=== PATIENT | female | born 1985 | race Caucasian/White ===

== ENCOUNTER → 2017-12-23 | Outpatient (CLI) | payer SELFPAY ==
[~2017-12-23] MED LIST: CRB200T PO; KLONIPIN PO
--- NOTE | 2017-12-23 17:20 | Diagnostic Imaging Report ---
PROCEDURE: US Thyroid. TECHNIQUE: Multiple real-time grayscale images were obtained of the thyroid in various projections. INDICATION: Enlarged thyroid COMPARISON: There are no prior studies available for comparison. FINDINGS: The thyroid gland is not enlarged. The right lobe measures 4.6 x 1.6 x 2 cm, while the left lobe is estimated at 4.8 x 1.5 x 1.8 cm (normal gland size 4-5 by 2 x 2 cm or less). Each lobe of the thyroid is homogeneous. There is no discrete solid or cystic mass within either lobe. IMPRESSION: The thyroid gland is not enlarged and there is no discrete solid or cystic mass within either lobe. Dictated by: Dictated on workstation # [id number]
== END ==
LOC: RAD 14:16
PROVIDERS: ATTEND Nurse Practitioner Family
DX: E04.9 Nontoxic goiter, unspecified (principal)
CPT/HCPCS: 76536

== ENCOUNTER 2018-09-01 22:51 | Emergency (ER) | payer OTHER ==
[~2018-09-01] VITALS: Ht 167.6 cm; Wt 90.7 kg
--- OUTSIDE RECORDS SUMMARY | 2018-09-01 22:56 | XMS REPORT ---
Author Author EARLINE AGUILAR Organization [facility] Address [address] [place] [address] Care Team Providers Care Loss Prevention Lead Name Role Phone EARLINE AGUILAR Unavailable PROBLEMS Type Condition ICD9-CM Code TPR59-[place] Code Onset Dates Condition Status SNOMED Code Problem Intractable episodic cluster headache G44.011 Active 947013974 ALLERGIES No Known Allergies ENCOUNTERS Encounter Location Date Diagnosis [place] [id number] [facility] [address] [id number] [place] [id number] Sep, Dental examination Z01.20 [facility] [id number] [place] [address] [id number] Sep, Intractable episodic headache, unspecified headache type R51 and Intractable episodic cluster headache G44.011 [facility] [id number] [place] [address] [id number] Aug, Encounter for Depo-Provera contraception Z30.42 [facility] [id number] [place] [address] [id number] May, Intractable episodic cluster headache G44.011 [facility] [id number] [place] [address] [id number] May, Encounter for Depo-Provera contraception Z30.42 [facility] [id number] [place] [address] [id number] Feb, Encounter for Depo-Provera contraception Z30.42 [place] [id number] [place] [address] [id number] Jan, Cough R05 and Flu-like symptoms R68.89 [facility] [id number] [place] [address] [id number] Jan, Acute non-recurrent frontal sinusitis J01.10 [facility] [address] [id number] Dec, Cough R05 and Sore throat J02.9 [facility] [address] [address] [id number] [place] [phone] Dec, [facility] [address] [facility] [address] [id number] [place] [phone] Dec, Dental examination Z01.20 [facility] [id number] [phone] Dec, [facility] [id number] [place] [address] [id number] Nov, Well woman exam with routine gynecological exam Z01.419 ; High risk sexual behavior Z72.51 ; control counseling Z30.09 ; Encounter for initial prescription of injectable contraceptive Z30.013 and Encounter for Depo-Provera contraception Z30.42 [facility] [address] [id number] Dec, Encounter for immunization Z23 [facility] [id number] [place] [address] [id number] Jun, Dental examination Z01.20 [facility] [address] [address] May, Dental examination Z01.20 [facility] [id number] [place] [phone] May, Dental examination Z01.20 [facility] [id number] [place] [phone] Apr, Dental examination Z01.20 [facility] [address] [place] [address] [id number] [phone] Jan, Viral syndrome B34.9 [facility] [id number] [place] [address] [id number] Dec, Dental examination Z01.20 and Dental caries K02.9 IMMUNIZATIONS Vaccine Route Administration Date Status PHENERGAN (IM) 25 MG (25 MG/ML) IM Intramuscular June 08, 2017 Administered TORADOL (IM) 60 MG/2ML (UP TO 15 MG) IM Intramuscular June 08, 2017 Administered SOCIAL HISTORY Never Assessed REASON FOR VISIT Headache for past 5 days---EDDIE musa PLAN OF CARE Activity Details Follow Up prn if not improving Reason: VITAL SIGNS Height 66 in 2017-06-08 Weight 191.2 lbs 2017-06-08 Temperature 99.3 degrees Fahrenheit 2017-06-08 Heart Rate 95 bpm 2017-06-08 Respiratory Rate 16 2017-06-08 BMI 30.86 kg/m2 2017-06-08 Blood pressure systolic 106 mmHg 2017-06-08 Blood pressure diastolic 64 mmHg 2017-06-08 MEDICATIONS Medication Instructions Dosage Frequency Start Date End Date Duration Status Olanzapine 5 MG Orally Once a day 1 tablet 24h Active Imitrex 100 mg Orally Twice a day 1 tablet as needed and may repeat in 1 hour if not resolved 12h May, 30 days Active Pseudoephedrine HCl 30 MG Orally every 6 hrs 1 tablet as needed 6h Jan, 07 days Not-Taking ProAir HFA 108 (90 Base) MCG/ACT Inhalation every 6 hrs 2 puffs as needed 6h Jan, 30 days Not-Taking [place] Carbonate 600 MG Orally Once a day 1 capsule at bedtime 24h Active RESULTS No Results PROCEDURES Procedure Date Ordered Result Body Site PHENERGAN (IM) 25 MG (25 MG/ML) June 08, 2017 THER/PROPH/DIAG INJ, SC/IM June 08, 2017 TORADOL (IM) 60 MG/2ML (UP TO 15 MG) June 08, 2017 INSTRUCTIONS MEDICATIONS ADMINISTERED No Known Medications MEDICAL (GENERAL) HISTORY Type Description Date Medical History cluster headaches Surgical History tonsilectomy 2002 Surgical History bone removed from left foot 2008
--- OUTSIDE RECORDS SUMMARY | 2018-09-01 22:56 | XMS REPORT ---
Author Author MARTITA DEAN [facility] Address [address] [place] [address] Care Team Providers Care Flight Communications Specialist Name Role Phone MARTITA DEAN Unavailable PROBLEMS Type Condition ICD9-CM Code FNE58-AL Code Onset Dates Condition Status SNOMED Code Problem Rhinitis J31.0 Active 23187105 Problem Enlarged thyroid E04.9 Active 9464175 Problem Intractable episodic cluster headache G44.011 Active 415656797 ALLERGIES No Known Allergies ENCOUNTERS Encounter Location Date Diagnosis [facility] [id number] [place] [address] [id number] Dec, Sore throat J02.9 ; Rhinitis J31.0 ; Nausea & vomiting R11.2 and Diarrhea R19.7 [facility] [id number] [place] [address] [id number] Dec, [facility] [id number] [place] [address] [id number] Dec, Enlarged thyroid E04.9 [facility] [id number] [place] [address] [id number] Nov, Encounter for Depo-Provera contraception Z30.[address] [id number] [phone] Sep, Dental examination Z01.20 [facility] [id number] [place] [address] [id number] Sep, Intractable episodic headache, unspecified headache type R51 and Intractable episodic cluster headache G44.011 [place] [id number] [place] [address] [id number] Aug, Encounter for Depo-Provera contraception Z30.42 [facility] [id number] [place] [address] [id number] May, Intractable episodic cluster headache G44.011 [address] [id number] May, Encounter for Depo-Provera contraception Z30.42 [place] [id number] [place] [address] [id number] Feb, Encounter for Depo-Provera contraception Z30.42 [place] [id number] [place] [address] [id number] Jan, Cough R05 and Flu-like symptoms R68.[address] [place] [address] [id number] Jan, Acute non-recurrent frontal sinusitis J01.[address] [place] [address] [id number] Dec, Cough R05 and Sore throat J02.9 [facility] [address] [id number] [phone] Dec, [facility] [id number] [place] [address] [id number] Dec, Dental examination Z01.20 [address] [place] [address] [id number] Dec, [place] [id number] [place] [address] [id number] Nov, Well woman exam with routine gynecological exam Z01.419 ; High risk sexual behavior Z72.51 ; control counseling Z30.09 ; Encounter for initial prescription of injectable contraceptive Z30.013 and Encounter for Depo-Provera contraception Z30.42 [address] [phone] Dec, Encounter for immunization Z23 [facility] [address] [address] [id number] [phone] Jun, Dental examination Z01.20 [facility] [id number] [place] [phone] May, Dental examination Z01.20 [facility] [address] [place] [phone] May, Dental examination Z01.20 [facility] [address] [id number] [place] [address] Apr, Dental examination Z01.20 [facility] [address] [id number] [place] [phone] Jan, Viral syndrome B34.9 [facility] [address] [id number] [place] [phone] Dec, Dental examination Z01.20 and Dental caries K02.9 IMMUNIZATIONS No Known Immunizations SOCIAL HISTORY Never Assessed REASON FOR VISIT states she has not felt good the past week, body aches and fever, started vomiti ng x 3 days ago. mariana Alberto PLAN OF CARE Activity Details Follow Up prn (with PCP) Reason: VITAL SIGNS Height 66 in 2017-12-31 Weight 187.4 lbs 2017-12-31 Temperature 98.0 degrees Fahrenheit 2017-12-31 Heart Rate 80 bpm 2017-12-31 Respiratory Rate 16 2017-12-31 BMI 30.24 kg/m2 2017-12-31 Blood pressure systolic 110 mmHg 2017-12-31 Blood pressure diastolic 76 mmHg 2017-12-31 MEDICATIONS Medication Instructions Dosage Frequency Start Date End Date Duration Status Zyrtec Allergy 10 mg Orally Once a day 1 tablet 24h Dec, Feb, 30 day(s) Active [place] Carbonate 600 MG Orally Once a day 1 capsule at bedtime 24h Active Imitrex 100 mg Orally as directed 1 tablet as needed and may repeat in 1 hour if not resolved May, 30 days Active Abilify 10 MG Orally Once a day 1 tablet 24h Active Ondansetron 8 MG Orally Twice a day 1 tablet on the tongue and allow to dissolve 12h Dec, 5 days Active RESULTS Name Result Date Reference Range STREP A (IN HOUSE) STREP A negative Control positive Lot # [id number] Exp date 06/11/20 PROCEDURES Procedure Date Ordered Result Body Site STREP A ASSAY W/OPTIC Dec 31, 2017 INSTRUCTIONS MEDICATIONS ADMINISTERED No Known Medications MEDICAL (GENERAL) HISTORY Type Description Date Medical History cluster headaches Medical History bipolar disorder Surgical History tonsilectomy 2002 Surgical History bone removed from left foot 2008
--- OUTSIDE RECORDS SUMMARY | 2018-09-01 22:56 | XMS REPORT ---
Author Author MARTITA DEAN [facility] Address [address] [place] [address] Care Team Providers Care Color Control Supervisor Name Role Phone MARTITA DEAN Unavailable PROBLEMS Type Condition ICD9-CM Code HHN90-GJ Code Onset Dates Condition Status SNOMED Code Problem Enlarged thyroid E04.9 Active 3087040 Problem Intractable episodic cluster headache G44.011 Active 682627324 ALLERGIES No Information ENCOUNTERS Encounter Location Date Diagnosis [facility] [id number] [place] [address] [id number] Dec, Enlarged thyroid E04.[address] [id number] Nov, Encounter for Depo-Provera contraception Z30.[address] [id number] [id number] Sep, Dental examination Z01.20 [facility] [address] [id number] Sep, Intractable episodic headache, unspecified headache type R51 and Intractable episodic cluster headache G44.011 [place] [id number] [place] [address] [id number] Aug, Encounter for Depo-Provera contraception Z30.42 [facility] [id number] [place] [address] [id number] May, Intractable episodic cluster headache G44.011 [place] [id number] [place] [address] [id number] May, Encounter for Depo-Provera contraception Z30.42 [facility] [id number] [place] [address] [id number] Feb, Encounter for Depo-Provera contraception Z30.42 [place] [id number] [place] [address] [id number] Jan, Cough R05 and Flu-like symptoms R68.89 [facility] [id number] [id number] Jan, Acute non-recurrent frontal sinusitis J01.10 [facility] [address] [id number] [id number] Dec, Cough R05 and Sore throat J02.9 [facility] [address] [facility] [facility] [address] [id number] [phone] Dec, [facility] [address] [facility] [id number] [place] [address] [id number] Dec, Dental examination Z01.20 [place] [id number] [place] [address] [id number] Dec, [place] [id number] [place] [address] [id number] Nov, Well woman exam with routine gynecological exam Z01.419 ; High risk sexual behavior Z72.51 ; control counseling Z30.09 ; Encounter for initial prescription of injectable contraceptive Z30.013 and Encounter for Depo-Provera contraception Z30.42 [address] [place] [address] [id number] Dec, Encounter for immunization Z23 [facility] [address] [place] [address] [id number] Jun, Dental examination Z01.20 [facility] [id number] [place] [phone] May, Dental examination Z01.20 [facility] [id number] [place] [phone] May, Dental examination Z01.20 [facility] [address] [phone] Apr, Dental examination Z01.20 [facility] [address] [place] [id number], [place] [id number] Jan, Viral syndrome B34.9 [facility] [address], [place] [id number] Dec, Dental examination Z01.20 and Dental caries K02.9 IMMUNIZATIONS Vaccine Route Administration Date Status DEPO PROVERA (150 MG/ML) IM Intramuscular Dec 07, 2017 Administered SOCIAL HISTORY Never Assessed REASON FOR VISIT Depo Provera injection Louis TORRES PLAN OF CARE VITAL SIGNS MEDICATIONS No Known Medications RESULTS Name Result Date Reference Range TEST, URINE (IN HOUSE) 2017-12-07 RESULTS negative Lot # [id number] Control + Exp date 07/13/2019 PROCEDURES Procedure Date Ordered Result Body Site URINE TEST Dec 07, 2017 DEPO PROVERA (150 MG/ML) Dec 07, 2017 THER/PROPH/DIAG INJ, SC/IM Dec 07, 2017 INSTRUCTIONS MEDICATIONS ADMINISTERED No Known Medications MEDICAL (GENERAL) HISTORY Type Description Date Medical History cluster headaches Surgical History tonsilectomy 2002 Surgical History bone removed from left foot 2008
--- OUTSIDE RECORDS SUMMARY | 2018-09-01 22:57 | XMS REPORT ---
Author Author SANDRA DOMINGUEZ [facility] Address [address] [place] [address] Care Team Providers Care Waiter Name Role Phone VICTORINAALEXANDERSANDRA Unavailable PROBLEMS Type Condition ICD9-CM Code TEE65-GC Code Onset Dates Condition Status SNOMED Code Problem Intractable episodic cluster headache G44.011 Active [id number] ALLERGIES No Information ENCOUNTERS Encounter Location Date Diagnosis [place] [id number] [place] [address] [id number] May, Intractable episodic cluster headache G44.011 [place] [id number] [place] [address] [id number] May, Encounter for Depo-Provera contraception Z30.42 [place] [id number] [place] [address] [id number] Feb, Encounter for Depo-Provera contraception Z30.42 [place] [id number] [place] [address] [id number] Jan, Cough R05 and Flu-like symptoms R68.89 [place] [id number] [place] [address] [id number] Jan, Acute non-recurrent frontal sinusitis J01.10 [place] [id number] [place] [address] [id number] Dec, Cough R05 and Sore throat J02.9 [facility] [address] [facility] [id number] [phone] Dec, [place] [id number] [place] [address] [phone] Dec, Dental examination Z01.20 [place] [id number] [place] [address] [id number] Dec, [address] [place] [id number] 26 Nov, 2017 Well woman exam with routine gynecological exam Z01.419 ; High risk sexual behavior Z72.51 ; control counseling Z30.09 ; Encounter for initial prescription of injectable contraceptive Z30.013 and Encounter for Depo-Provera contraception Z30.42 [facility] [id number] [id number] 20 Dec, 2015 Encounter for immunization Z23 [facility] [address] [phone] Jun, Dental examination Z01.20 [facility] [id number] [place] [phone] May, Dental examination Z01.20 [facility] [id number] [place] [phone] May, Dental examination Z01.20 [facility] [id number] [place] [phone] Apr, Dental examination Z01.20 [facility] [address] [place] [address] [id number], [place] [phone] Jan, Viral syndrome B34.9 [facility] [address] [place] [address] [phone] Dec, Dental examination Z01.20 and Dental caries K02.9 IMMUNIZATIONS No Known Immunizations SOCIAL HISTORY Never Assessed REASON FOR VISIT requests return call PLAN OF CARE VITAL SIGNS MEDICATIONS No Known Medications RESULTS No Results PROCEDURES No Known procedures INSTRUCTIONS MEDICATIONS ADMINISTERED No Known Medications MEDICAL (GENERAL) HISTORY Type Description Date Medical History cluster headaches Surgical History tonsilectomy 2002 Surgical History bone removed from left foot 2008
--- OUTSIDE RECORDS SUMMARY | 2018-09-01 22:57 | XMS REPORT ---
Author Author EMANUEL TOLLIVER [facility] eClinical[employer] Address Unknown Phone Unavailable Care Team Providers Care Campus Administrative Assistant Name Role Phone EMANUEL TOLLIVER CP Unavailable Allergies, Adverse Reactions, Alerts Substance Reaction Event Type N.K.D.A. Info Not Available Non Drug Allergy Problems Problem Type Condition Code Onset Dates Condition Status Assessment Viral syndrome B34.9 Active Medications No Known Medications Procedures Procedure Coding System Code Date STREP A ASSAY W/OPTIC CPT-4 50678 Feb 04, 2015 INFLUENZA ASSAY W/OPTIC CPT-4 54951 Feb 04, 2015 Office Visit, New Pt., Level 2 CPT-4 61131 Feb 04, 2015 Vital Signs Date/Time: Feb 04, 2015 Cardiac Monitoring Heart Rate 90 bpm Temperature 102.4 F Weight 181 lbs Blood Pressure Diastolic 60 mmHg Blood Pressure Systolic 120 mmHg Results Name Result Date Reference Range Unit Abnormality Flag INFLUENZA A & B (IN HOUSE) Summary Purpose eClinicalWorks Submission
--- OUTSIDE RECORDS SUMMARY | 2018-09-01 22:57 | XMS REPORT ---
Author Author UMBERTO WORTHY [facility] Address [address] [place] [address] Care Team Providers Care Medicare Sales Representative Name Role Phone REKHA WORTHYO Unavailable PROBLEMS Type Condition ICD9-CM Code [id number] Code Onset Dates Condition Status SNOMED Code Problem Intractable episodic cluster headache G44.011 Active [id number] ALLERGIES No Known Allergies ENCOUNTERS Encounter Location Date Diagnosis [facility] [address] [id number] Sep, Dental examination Z01.20 [facility] [id number] [place] [address] [id number] Sep, Intractable episodic headache, unspecified headache type R51 and Intractable episodic cluster headache G44.011 [facility] [id number] [place] [address] [id number] Aug, Encounter for Depo-Provera contraception Z30.42 [address] [id number] [place] [address] [id number] May, Intractable episodic cluster headache G44.011 [facility] [id number] [place] [address] [id number] May, Encounter for Depo-Provera contraception Z30.42 [facility] [id number] [place] [address] [id number] Feb, Encounter for Depo-Provera contraception Z30.42 [id number] [place] [address] [id number] Jan, Cough R05 and Flu-like symptoms R68.89 [facility] [id number] [place] [address] [id number] Jan, Acute non-recurrent frontal sinusitis J01.10 [facility] [address] [id number] Dec, Cough R05 and Sore throat J02.9 [facility] [address] [id number] [phone] Dec, [facility] [address] [id number] [place] [phone] Dec, Dental examination Z01.20 [facility] [address] [id number] [id number] Dec, [facility] [id number], [place] [id number] Nov, Well woman exam with routine gynecological exam Z01.419 ; High risk sexual behavior Z72.51 ; control counseling Z30.09 ; Encounter for initial prescription of injectable contraceptive Z30.013 and Encounter for Depo-Provera contraception Z30.42 [facility] [id number], [place] [phone] Dec, Encounter for immunization Z23 [facility] [address] [place] [address] [id number] Jun, Dental examination Z01.20 [facility] [id number] [place] [phone] May, Dental examination Z01.20 [facility] [id number] [place] [phone] May, Dental examination Z01.20 [facility] [id number] [place] [phone] Apr, Dental examination Z01.20 [facility] [address] [id number] [phone] Jan, Viral syndrome B34.9 [facility] [id number] [place] [address] [id number] Dec, Dental examination Z01.20 and Dental caries K02.9 IMMUNIZATIONS No Known Immunizations SOCIAL HISTORY Never Assessed REASON FOR VISIT wants te PLAN OF CARE Activity Details Follow Up prn Reason:Referred to [place]. VITAL SIGNS Height 66 in 2017-10-11 Blood pressure systolic 106 mmHg 2017-10-11 Blood pressure diastolic 67 mmHg 2017-10-11 MEDICATIONS Medication Instructions Dosage Frequency Start Date End Date Duration Status Cougar Carbonate 600 MG Orally Once a day 1 capsule at bedtime 24h Active Olanzapine 5 MG Orally Once a day 1 tablet 24h Not-Taking Risperidone 1 MG Orally twice a day 1 tablet 12h Active Amoxicillin 500 MG Orally every 8 hrs 1 capsule 8h Sep, Oct, 10 day(s) Active Imitrex 100 mg Orally as directed 1 tablet as needed and may repeat in 1 hour if not resolved May, 30 days Active Pseudoephedrine HCl 30 MG Orally every 6 hrs 1 tablet as needed 6h Jan, 07 days Not-Taking Abilify Active ProAir HFA 108 (90 Base) MCG/ACT Inhalation every 6 hrs 2 puffs as needed 6h Jan, 30 days Not-Taking RESULTS No Results PROCEDURES Procedure Date Ordered Result Body Site LTD ORAL EVALUATION - PROBLEM FOCUS October 11, 2017 INTRAORL-PERIAPICAL 1 FILM [id number] October 11, 2017 BITEWING - SINGLE FILM October 11, 2017 INSTRUCTIONS MEDICATIONS ADMINISTERED No Known Medications MEDICAL (GENERAL) HISTORY Type Description Date Medical History cluster headaches Surgical History tonsilectomy 2002 Surgical History bone removed from left foot 2008
--- OUTSIDE RECORDS SUMMARY | 2018-09-01 22:57 | XMS REPORT ---
Author Author EARLINE AGUILAR Organization [facility] Address [address] [place] [address] Care Team Providers Care Strategic Business Development Name Role Phone EARLINE AGUILAR Unavailable PROBLEMS Type Condition ICD9-CM Code ODM65-BQ Code Onset Dates Condition Status SNOMED Code Problem Intractable episodic cluster headache G44.011 Active [id number] ALLERGIES No Information ENCOUNTERS Encounter Location Date Diagnosis [place] [id number] [facility] [address] [id number] [id number] Sep, Dental examination Z01.20 [facility] [id number] [place] [address] [id number] Sep, Intractable episodic headache, unspecified headache type R51 and Intractable episodic cluster headache G44.011 [facility] [id number] [place] [address] [id number] Aug, Encounter for Depo-Provera contraception Z30.42 [facility] [id number] [place] [address] [id number] May, Intractable episodic cluster headache G44.011 [facility] [id number] [place] [address] [id number] May, Encounter for Depo-Provera contraception Z30.42 [facility] [id number] [place] [address] [id number] Feb, Encounter for Depo-Provera contraception Z30.42 [place] [id number] [place] [address] [id number] Jan, Cough R05 and Flu-like symptoms R68.89 [facility] [id number] [place] [address] [id number] Jan, Acute non-recurrent frontal sinusitis J01.10 [facility] [address], [place] [id number] Dec, Cough R05 and Sore throat J02.9 [facility] [address] [facility] [address] [id number] [id number] Dec, [facility] [address] [facility] [address] [id number][place] [phone] Dec, Dental examination Z01.20 [facility] [id number], [place] [phone] Dec, [facility] [id number] [place] [address] [id number] Nov, Well woman exam with routine gynecological exam Z01.419 ; High risk sexual behavior Z72.51 ; control counseling Z30.09 ; Encounter for initial prescription of injectable contraceptive Z30.013 and Encounter for Depo-Provera contraception Z30.42 [facility] [id number], [place] [phone] Dec, Encounter for immunization Z23 [facility] [address] [place] [address] [id number] Jun, Dental examination Z01.20 [facility] [address] [address] May, Dental examination Z01.20 [facility] [id number] [place] [phone] May, Dental examination Z01.20 [facility] [id number] [place] [phone] Apr, Dental examination Z01.20 [facility] [address] [id number], [place] [id number] Jan, Viral syndrome B34.9 [facility] [id number] [place] [address] [id number] Dec, Dental examination Z01.20 and Dental caries K02.9 IMMUNIZATIONS Vaccine Route Administration Date Status DEPO PROVERA (150 MG/ML) IM Intramuscular August 30, 2017 Administered SOCIAL HISTORY Never Assessed REASON FOR VISIT Depo-provera Injection KJones RN PLAN OF CARE VITAL SIGNS MEDICATIONS Unknown Medications RESULTS Name Result Date Reference Range TEST, URINE (IN HOUSE) 2017-08-30 RESULTS negative Lot # [id number] Control positive Exp date 03/14/19 PROCEDURES Procedure Date Ordered Result Body Site URINE TEST August 30, 2017 DEPO PROVERA (150 MG/ML) August 30, 2017 THER/PROPH/DIAG INJ, SC/IM August 30, 2017 INSTRUCTIONS MEDICATIONS ADMINISTERED No Known Medications MEDICAL (GENERAL) HISTORY Type Description Date Medical History cluster headaches Surgical History tonsilectomy 2002 Surgical History bone removed from left foot 2008
--- OUTSIDE RECORDS SUMMARY | 2018-09-01 22:57 | XMS REPORT ---
Author Author EARLINE AGUILAR Organization [facility] Address [address] [place] [address] Care Team Providers Care Machine Printer Hose Name Role Phone EARLINE AGUILAR Unavailable PROBLEMS Type Condition ICD9-CM Code SQH84-TT Code Onset Dates Condition Status SNOMED Code Problem Intractable episodic cluster headache G44.011 Active [id number] ALLERGIES No Information ENCOUNTERS Encounter Location Date Diagnosis [facility] [address] [facility] [id number], [place] [id number] Sep, [address] [place] [address] [id number] Sep, [facility] [id number] [place] [address] [id number] Aug, Encounter for Depo-Provera contraception Z30.42 [place] [id number] [place] [address] [id number] May, Intractable episodic cluster headache G44.011 [facility] [id number] [place] [address] [id number] May, Encounter for Depo-Provera contraception Z30.42 [id number] [place] [address] [id number] Feb, Encounter for Depo-Provera contraception Z30.42 [facility] [id number] [place] [address] [id number] Jan, Cough R05 and Flu-like symptoms R68.89 [facility] [id number] [place] [address] [id number] Jan, Acute non-recurrent frontal sinusitis J01.10 [facility] [id number] [place] [address] [id number] Dec, Cough R05 and Sore throat J02.9 [address] [facility] [id number], [place] [phone] Dec, [facility] [address] [facility] [id number][place] [phone] Dec, Dental examination Z01.20 [facility] [address] [facility] [id number] [phone] Dec, [facility] [id number] [place] [address] [id number] Nov, Well woman exam with routine gynecological exam Z01.419 ; High risk sexual behavior Z72.51 ; control counseling Z30.09 ; Encounter for initial prescription of injectable contraceptive Z30.013 and Encounter for Depo-Provera contraception Z30.42 [facility] [id number] [place] [address] [id number] Dec, Encounter for immunization Z23 [facility] [address] [place] [address] [id number] Jun, Dental examination Z01.20 [facility] [id number] [place] [phone] May, Dental examination Z01.20 [facility] [id number] [place] [phone] May, Dental examination Z01.20 [facility] [id number] [place] [phone] Apr, Dental examination Z01.20 [facility] [address] [id number], [place] [phone] Jan, Viral syndrome B34.9 [facility] [address] [place] [address] [phone] Dec, Dental examination Z01.20 and Dental caries K02.9 IMMUNIZATIONS Vaccine Route Administration Date Status DEPO PROVERA (150 MG/ML) IM Intramuscular May 31, 2017 Administered SOCIAL HISTORY Never Assessed REASON FOR VISIT Depo Provera injection Jodi MORGAN PLAN OF CARE VITAL SIGNS MEDICATIONS Unknown Medications RESULTS Name Result Date Reference Range TEST, URINE (IN HOUSE) 2017-05-31 RESULTS negative Lot # [id number] Control positive Exp date 11/12/18 PROCEDURES Procedure Date Ordered Result Body Site URINE TEST May 31, 2017 DEPO PROVERA (150 MG/ML) May 31, 2017 THER/PROPH/DIAG INJ, SC/IM May 31, 2017 INSTRUCTIONS MEDICATIONS ADMINISTERED No Known Medications MEDICAL (GENERAL) HISTORY Type Description Date Medical History cluster headaches Surgical History tonsilectomy 2002 Surgical History bone removed from left foot 2008
--- OUTSIDE RECORDS SUMMARY | 2018-09-01 22:57 | XMS REPORT ---
Author Author EARLINE AGUILAR Organization [facility] Address [address] [place] [address] Care Team Providers Care Driller Brake Lining Name Role Phone EARLINE AGUILAR Unavailable PROBLEMS Type Condition ICD9-CM Code JGD26-MA Code Onset Dates Condition Status SNOMED Code Problem Intractable episodic cluster headache G44.011 Active [id number] ALLERGIES No Known Allergies ENCOUNTERS Encounter Location Date Diagnosis [id number] [place] [address] [id number] May, Intractable episodic cluster headache G44.011 [id number] [place] [address] [id number] May, Encounter for Depo-Provera contraception Z30.42 [id number] [place] [address] [id number] Feb, Encounter for Depo-Provera contraception Z30.42 [address] [id number] [place] [address] [id number] Jan, Cough R05 and Flu-like symptoms R68.89 [address] [id number] [place] [address] [id number] Jan, Acute non-recurrent frontal sinusitis J01.[address] [id number] Dec, Cough R05 and Sore throat J02.9 [facility] [address] [id number] [phone] Dec, [facility] [address] [id number], [place] [phone] Dec, Dental examination Z01.20 [id number] [place] [address] [id number] Dec, [address] [place] [id number] [id number] Nov, Well woman exam with routine gynecological exam Z01.419 ; High risk sexual behavior Z72.51 ; control counseling Z30.09 ; Encounter for initial prescription of injectable contraceptive Z30.013 and Encounter for Depo-Provera contraception Z30.42 [facility] [id number] [place]IVER[place] [phone] 20 Dec, 2015 Encounter for immunization Z23 [facility] [address] [place] [address] [id number] Jun, Dental examination Z01.20 [facility] [address] [phone] May, Dental examination Z01.20 [facility] [id number] [place] [phone] May, Dental examination Z01.20 [facility] [id number] [place] [phone] Apr, Dental examination Z01.20 [facility] [id number] [place] [phone] Jan, Viral syndrome B34.9 [facility] [address] [place] [address] [phone] Dec, Dental examination Z01.20 and Dental caries K02.9 IMMUNIZATIONS Vaccine Route Administration Date Status DEPO PROVERA (150 MG/ML) IM Intramuscular Dec 08, 2016 Administered SOCIAL HISTORY Never Assessed REASON FOR VISIT pap/ control consult Jodi MORGAN PLAN OF CARE Activity Details Follow Up [address] Valdes for Nexplanon insertion Reason: Pending Test PAP REFLEX TO HPV IF ASCUS VITAL SIGNS Weight 193.6 lbs 2016-12-08 Temperature 97.8 degrees Fahrenheit 2016-12-08 Heart Rate 93 bpm 2016-12-08 Respiratory Rate 18 2016-12-08 Blood pressure systolic 108 mmHg 2016-12-08 Blood pressure diastolic 62 mmHg 2016-12-08 MEDICATIONS Medication Instructions Dosage Frequency Start Date End Date Duration Status Depo-Provera 150 MG/ML Intramuscular every 3 months 1 ml Nov, Nov, 0 days Active RESULTS No Results PROCEDURES Procedure Date Ordered Result Body Site URINE TEST Dec 08, 2016 THER/PROPH/DIAG INJ, SC/IM Dec 08, 2016 DEPO PROVERA (150 MG/ML) Dec 08, 2016 No Charge Dec 08, 2016 Bacterial Vaginosis In House Dec 08, 2016 SPECIMEN HANDLING Dec 08, 2016 CULTURE, BACTERIA, OTHER Dec 08, 2016 TRICHOMONAS ASSAY W/OPTIC Dec 08, 2016 INSTRUCTIONS MEDICATIONS ADMINISTERED No Known Medications MEDICAL (GENERAL) HISTORY Type Description Date Medical History cluster headaches Surgical History tonsilectomy 2002 Surgical History bone removed from left foot 2008
--- OUTSIDE RECORDS SUMMARY | 2018-09-01 22:57 | XMS REPORT ---
Author Author ROLANDO HERNANDEZ Organization [facility] Address [address] [place] [address] Care Team Providers Care Knot Picker Cloth Name Role Phone JULIAILYNHUYEN ROLANDO Unavailable PROBLEMS Type Condition ICD9-CM Code MYI48-CG Code Onset Dates Condition Status SNOMED Code Problem Intractable episodic cluster headache G44.011 Active [id number] ALLERGIES No Known Allergies ENCOUNTERS Encounter Location Date Diagnosis [place] [facility] [address] [id number] [phone] Sep, Dental examination Z01.20 [facility] [id number] [place] [address] [id number] Sep, Intractable episodic headache, unspecified headache type R51 and Intractable episodic cluster headache G44.011 [facility] [id number] [place] [address] [id number] Aug, Encounter for Depo-Provera contraception Z30.42 [facility] [id number] [place] [address] [id number] May, Intractable episodic cluster headache G44.011 [facility] [id number] [place] [address] [id number] May, Encounter for Depo-Provera contraception Z30.42 [facility] [id number] [place] [address] [id number] Feb, Encounter for Depo-Provera contraception Z30.42 [place] [id number] [place] [address] [id number] Jan, Cough R05 and Flu-like symptoms R68.89 [facility] [id number] [place] [address] [id number] Jan, Acute non-recurrent frontal sinusitis J01.10 [facility] [id number] [place] [address] [id number] Dec, Cough R05 and Sore throat J02.9 [facility] [address] [facility] [address] [id number], [place] [phone] Dec, [facility] [address] [facility] [address] [id number], [place] [phone] Dec, Dental examination Z01.20 [facility] [id number] [id number] Dec, [facility] [id number] [place] [address] [id number] Nov, Well woman exam with routine gynecological exam Z01.419 ; High risk sexual behavior Z72.51 ; control counseling Z30.09 ; Encounter for initial prescription of injectable contraceptive Z30.013 and Encounter for Depo-Provera contraception Z30.[address] [place] [address] [id number] Dec, Encounter for immunization Z23 [facility] [id number] [place] [address] [phone] Jun, Dental examination Z01.20 [facility] [address] [address] May, Dental examination Z01.20 [facility] [id number] [place] [phone] May, Dental examination Z01.20 [facility] [id number] [place] [phone] Apr, Dental examination Z01.20 [facility] [id number] [place] [address] [id number] Jan, Viral syndrome B34.9 [facility] [id number] [place] [address] [id number] Dec, Dental examination Z01.20 and Dental caries K02.9 IMMUNIZATIONS Vaccine Route Administration Date Status TORADOL (IM) 60 MG/2ML (UP TO 15 MG) IM Intramuscular September 30, 2017 Administered SOCIAL HISTORY Never Assessed REASON FOR VISIT Pt c/o headache started a couple weeks ago Louis TORRES PLAN OF CARE Activity Details Follow Up prn Reason: VITAL SIGNS Height 66 in 2017-09-30 Weight 188 lbs 2017-09-30 Temperature 98.1 degrees Fahrenheit 2017-09-30 Heart Rate 90 bpm 2017-09-30 Respiratory Rate 16 2017-09-30 BMI 30.34 kg/m2 2017-09-30 Blood pressure systolic 122 mmHg 2017-09-30 Blood pressure diastolic 68 mmHg 2017-09-30 MEDICATIONS Medication Instructions Dosage Frequency Start Date End Date Duration Status Lockett Carbonate 600 MG Orally Once a day 1 capsule at bedtime 24h Active Pseudoephedrine HCl 30 MG Orally every 6 hrs 1 tablet as needed 6h Jan, 07 days Not-Taking Imitrex 100 mg Orally as directed 1 tablet as needed and may repeat in 1 hour if not resolved May, 30 days Active Olanzapine 5 MG Orally Once a day 1 tablet 24h Active Risperidone 1 MG Orally twice a day 1 tablet 12h Active ProAir HFA 108 (90 Base) MCG/ACT Inhalation every 6 hrs 2 puffs as needed 6h Jan, 30 days Not-Taking RESULTS No Results PROCEDURES Procedure Date Ordered Result Body Site TORADOL (IM) 60 MG/2ML (UP TO 15 MG) September 30, 2017 THER/PROPH/DIAG INJ, SC/IM September 30, 2017 INSTRUCTIONS MEDICATIONS ADMINISTERED No Known Medications MEDICAL (GENERAL) HISTORY Type Description Date Medical History cluster headaches Surgical History tonsilectomy 2002 Surgical History bone removed from left foot 2008
--- OUTSIDE RECORDS SUMMARY | 2018-09-01 22:57 | XMS REPORT ---
Author Author EARLINE AGUILAR Organization [facility] Address [address] [place] [address] Care Team Providers Care Sales Development Representative Name Role Phone EARLINE AGUILAR Unavailable PROBLEMS Type Condition ICD9-CM Code [id number] Code Onset Dates Condition Status SNOMED Code Problem Intractable episodic cluster headache G44.011 Active [id number] ALLERGIES No Information ENCOUNTERS Encounter Location Date Diagnosis [place] [id number] [place] [address] [id number] May, Intractable episodic cluster headache G44.011 [place] [id number] [place] [address] [id number] May, Encounter for Depo-Provera contraception Z30.42 [place] [id number] [place] [address] [id number] Feb, Encounter for Depo-Provera contraception Z30.42 [place] [id number] [place] [address] [id number] Jan, Cough R05 and Flu-like symptoms R68.[address] [id number] Jan, Acute non-recurrent frontal sinusitis J01.[address] [id number] Dec, Cough R05 and Sore throat J02.9 [facility] [address] [id number][place] [id number] Dec, [facility] [address] [id number][place] [id number] Dec, Dental examination Z01.[address] [place] [id number] Dec, [address] [id number], [place] [id number] 26 Nov, 2017 Well woman exam with routine gynecological exam Z01.419 ; High risk sexual behavior Z72.51 ; control counseling Z30.09 ; Encounter for initial prescription of injectable contraceptive Z30.013 and Encounter for Depo-Provera contraception Z30.42 [facility] [id number], [place] [id number] 20 Dec, 2015 Encounter for immunization Z23 [facility] [address] [id number] Jun, Dental examination Z01.20 [facility] [id number] [place] [phone] May, Dental examination Z01.20 [facility] [id number] [place] [phone] May, Dental examination Z01.20 [facility] [id number] [place] [phone] Apr, Dental examination Z01.20 [facility] [address]00565100[place], [place] [id number] Jan, Viral syndrome B34.9 [facility] [address] [id number] Dec, Dental examination Z01.20 and Dental caries K02.9 IMMUNIZATIONS No Known Immunizations SOCIAL HISTORY Never Assessed REASON FOR VISIT fever not better PLAN OF CARE VITAL SIGNS MEDICATIONS Medication Instructions Dosage Frequency Start Date End Date Duration Status Amoxicillin-Pot Clavulanate 875-125 MG Orally every 12 hrs 1 tablet 12h Jan, Jan, 10 day(s) Active RESULTS No Results PROCEDURES No Known procedures INSTRUCTIONS MEDICATIONS ADMINISTERED No Known Medications MEDICAL (GENERAL) HISTORY Type Description Date Medical History cluster headaches Surgical History tonsilectomy 2002 Surgical History bone removed from left foot 2008
--- OUTSIDE RECORDS SUMMARY | 2018-09-01 22:58 | XMS REPORT ---
Author Author EARLINE AGUILAR Organization [facility] Address [address] [place] [address] Care Team Providers Care Non Destructive Testing Engineer Name Role Phone EARLINE AGUILAR Unavailable PROBLEMS Type Condition ICD9-CM Code [id number] Code Onset Dates Condition Status SNOMED Code Problem Intractable episodic cluster headache G44.011 Active [id number] ALLERGIES No Information ENCOUNTERS Encounter Location Date Diagnosis [place] [id number] [place] [address] [id number] May, Intractable episodic cluster headache G44.011 [address] [place] [id number] [place] [address] [id number] May, Encounter for Depo-Provera contraception Z30.42 [address] [id number] [place] [address] [id number] Feb, Encounter for Depo-Provera contraception Z30.42 [address] [id number] [place] [address] [id number] Jan, Cough R05 and Flu-like symptoms R68.89 [address] [id number] [place] [address] [id number] Jan, Acute non-recurrent frontal sinusitis J01.[address] [id number] Dec, Cough R05 and Sore throat J02.9 [facility] [address] [id number][place] [id number] Dec, [facility] [address] [id number][place] [id number] Dec, Dental examination Z01.20 [address] [place] [address] [id number] Dec, [address] [id number]'BRI[place] [id number] 26 Nov, 2016 Well woman exam with routine gynecological exam Z01.419 ; High risk sexual behavior Z72.51 ; control counseling Z30.09 ; Encounter for initial prescription of injectable contraceptive Z30.013 and Encounter for Depo-Provera contraception Z30.42 [facility] [id number]'BRIEN[place] [id number] 20 Dec, 2015 Encounter for immunization Z23 [facility] [address], [place] [id number] Jun, Dental examination Z01.20 [facility] [id number] [place] [phone] May, Dental examination Z01.20 [facility] [id number] [place] [phone] May, Dental examination Z01.20 [facility] [id number] [place] [phone] Apr, Dental examination Z01.20 [facility] [address]00565100[place], [place] [id number] Jan, Viral syndrome B34.9 [facility] [address] [place] [address] [id number] Dec, Dental examination Z01.20 and Dental caries K02.9 IMMUNIZATIONS No Known Immunizations SOCIAL HISTORY Never Assessed 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
--- OUTSIDE RECORDS SUMMARY | 2018-09-01 22:58 | XMS REPORT ---
Author TARA Montilla [facility] eClinicalWorks Address Unknown Phone Unavailable Care Team Providers Care Credit Collection Associate Name Role Phone TARA ADHIKARI CP Unavailable Allergies, Adverse Reactions, Alerts Substance Reaction Event Type N.K.D.A. Info Not Available Non Drug Allergy Problems Problem Type Condition Code Onset Dates Condition Status Assessment Dental examination Z01.20 Active Medications No Known Medications Procedures Procedure Coding System Code Date Billing Notes on claim CPT-4 EC109 June 03, 2015 CROWN - PORCELAIN/CERAMIC SUBSTRATE CPT-4 D2740 May 20, 2015 Vital Signs Date/Time: June 03, 2015 Blood Pressure Diastolic 67 mmHg Blood Pressure Systolic 116 mmHg Results No Known Results Summary Purpose eClinicalWorks Submission
--- OUTSIDE RECORDS SUMMARY | 2018-09-01 22:58 | XMS REPORT ---
Author Author OLEGARIO HOLLINS [facility] eClinicalWorks Address Unknown Phone Unavailable Care Team Providers Care Supervisor Ski Production Name Role Phone OLEGARIO HOLLINS CP Unavailable Allergies, Adverse Reactions, Alerts Substance Reaction Event Type N.K.D.A. Info Not Available Non Drug Allergy Problems Problem Type Condition Code Onset Dates Condition Status Assessment Dental caries K02.9 Active Assessment Dental examination Z01.20 Active Medications No Known Medications Procedures Procedure Coding System Code Date PANORAMIC FILM SEE ALSO CODE 84047 CPT-4 D0330 Dec 25, 2014 EXTRAC ERUPTED TOOTH/EXPOSED ROOT CPT-4 D7140 Dec 25, 2014 LTD ORAL EVALUATION - PROBLEM FOCUS CPT-4 D0140 Dec 25, 2014 Vital Signs Date/Time: Dec 25, 2014 Blood Pressure Diastolic 67 mmHg Blood Pressure Systolic 109 mmHg Results No Known Results Summary Purpose eClinicalWorks Submission
--- OUTSIDE RECORDS SUMMARY | 2018-09-01 22:58 | XMS REPORT | Continuity of Care Document ---
Author Organization Unknown Address Unknown Allergies There is no data. Medications There is no data. Problems There is no data. Procedures There is no data. Results Test Result Range CULTURE, GENITAL - 12/08/16 16:19 CULTURE, GENITAL SEE NOTE NRG SUREPATH PAP RFX HPV mRNA E6/E7 - 12/08/16 16:19 CLINICAL INFORMATION: NRG LMP: 11/13/16 NRG PREV. PAP: NML NRG PREV. BX: NONE NRG SOURCE: Cervix NRG STATEMENT OF ADEQUACY: NRG INTERPRETATION/RESULT: NRG WEBSITE PROJECT MANAGER: NRG INFECTION: NRG CBC - 12/16/17 10:16 WHITE BLOOD CELL COUNT 6.2 Thousand/uL 3.8-10.8 RED BLOOD CELL COUNT 4.40 Million/uL 3.80-5.10 HEMOGLOBIN 13.1 g/dL 11.7-15.5 HEMATOCRIT 39.3 % 35.0-45.0 MCV 89.3 fL 80.0-100.0 MCH 29.8 pg 27.0-33.0 MCHC 33.3 g/dL 32.0-36.0 RDW 11.9 % 11.0-15.0 PLATELET COUNT 262 Thousand/uL 140-400 MPV 10.7 fL 7.5-12.5 ABSOLUTE NEUTROPHILS 3540 cells/uL 4486-1979 ABSOLUTE LYMPHOCYTES 1978 cells/uL 850-3900 ABSOLUTE MONOCYTES 453 cells/uL 200-950 ABSOLUTE EOSINOPHILS 180 cells/uL 15-500 ABSOLUTE BASOPHILS 50 cells/uL 0-200 NEUTROPHILS 57.1 % NRG LYMPHOCYTES 31.9 % NRG MONOCYTES 7.3 % NRG EOSINOPHILS 2.9 % NRG BASOPHILS 0.8 % NRG Encounters ACCT No. Visit Date/Time Discharge Status Pt. Type Provider Facility Loc./Unit Complaint [id number] 07/28/2018 13:20:00 07/28/2018 23:59:59 [facility] Outpatient EMANUEL TOLLIVER APRN [facility] [id number] 12/16/2017 10:00:00 Document Registration [id number] 12/08/2016 15:20:00 Document Registration
--- OUTSIDE RECORDS SUMMARY | 2018-09-01 22:58 | XMS REPORT ---
Author Author EARLINE AGUILAR Organization [facility] Address [address] [place] [address] Care Team Providers Care Small Business Consultant Name Role Phone EARLINE AGUILAR Unavailable PROBLEMS Type Condition ICD9-CM Code [id number] Code Onset Dates Condition Status SNOMED Code Problem Intractable episodic cluster headache G44.011 Active [id number] ALLERGIES No Known Allergies ENCOUNTERS Encounter Location Date Diagnosis [id number] [place] [address] [id number] May, Intractable episodic cluster headache G44.011 [address] [id number] [place] [address] [id number] May, Encounter for Depo-Provera contraception Z30.42 [place] [id number] [place] [address] [id number] Feb, Encounter for Depo-Provera contraception Z30.42 [place] [place] [id number] [place] [address] [id number] Jan, Cough R05 and Flu-like symptoms R68.89 [place] [id number] [place] [address] [id number] Jan, Acute non-recurrent frontal sinusitis J01.10 [place] [id number] [place] [address] [id number] Dec, Cough R05 and Sore throat J02.9 [facility] [address] [id number][place] [id number] Dec, [facility] [address] [id number], [place] [phone] Dec, Dental examination Z01.20 [place] [id number] [place] [address] [id number] Dec, [address] [place] [id number] [id number] 26 Nov, 2016 Well woman exam with routine gynecological exam Z01.419 ; High risk sexual behavior Z72.51 ; control counseling Z30.09 ; Encounter for initial prescription of injectable contraceptive Z30.013 and Encounter for Depo-Provera contraception Z30.42 [facility] [id number], [place] [id number] 20 Dec, 2015 Encounter for immunization Z23 [facility] [address] [place] [address] [id number] Jun, Dental examination Z01.20 [facility] [address] [phone] May, Dental examination Z01.20 [facility] [id number] [place] [phone] May, Dental examination Z01.20 [facility] [id number] [place] [phone] Apr, Dental examination Z01.20 [facility] [id number], [place] [id number] Jan, Viral syndrome B34.9 [facility] [address] [place] [address] [id number] Dec, Dental examination Z01.20 and Dental caries K02.9 IMMUNIZATIONS No Known Immunizations SOCIAL HISTORY Never Assessed REASON FOR VISIT Pt c/o cough, congestion, sore throat, fever started 4 days Louis TORRES PLAN OF CARE Activity Details Follow Up if s/s not improving with PCP or in Clinic Reason: VITAL SIGNS Height 66 in 2017-02-10 Weight 186 lbs 2017-02-10 Temperature 100 degrees Fahrenheit 2017-02-10 Heart Rate 106 bpm 2017-02-10 Respiratory Rate 18 2017-02-10 BMI 30.02 kg/m2 2017-02-10 Blood pressure systolic 124 mmHg 2017-02-10 Blood pressure diastolic 68 mmHg 2017-02-10 MEDICATIONS Medication Instructions Dosage Frequency Start Date End Date Duration Status ProAir HFA 108 (90 Base) MCG/ACT Inhalation every 6 hrs 2 puffs as needed 6h Jan, 30 days Active Benzonatate 200 mg Orally Three times a day 1 capsule 8h Jan, Feb, 14 days Active Pseudoephedrine HCl 30 MG Orally every 6 hrs 1 tablet as needed 6h Jan, 07 days Active RESULTS No Results PROCEDURES No Known procedures INSTRUCTIONS MEDICATIONS ADMINISTERED No Known Medications MEDICAL (GENERAL) HISTORY Type Description Date Medical History cluster headaches Surgical History tonsilectomy 2002 Surgical History bone removed from left foot 2008
--- OUTSIDE RECORDS SUMMARY | 2018-09-01 22:58 | XMS REPORT ---
Author Author LETITIA JIMENEZ [facility] eClinicalWorks Address Unknown Phone Unavailable Care Team Providers Care Grill Cook Name Role Phone LETITIA JIMENEZ Unavailable Allergies No Known Allergies Problems Problem Type Condition Code Onset Dates Condition Status Assessment Encounter for immunization Z23 Active Medications No Known Medications Procedures Procedure Coding System Code Date SINGLE IMMUNIZATION ADMIN CPT-4 15620 Jan 02, 2016 FLUARIX QUAD P-FREE 3 AND UP .50 2015 CPT-4 26170 Jan 02, 2016 Results No Known Results Immunizations Vaccine Administration Date FLUARIX QUAD P-FREE 3 AND UP .50 2015Jan 02, 2016 Summary Purpose eClinicalWorks Submission
--- OUTSIDE RECORDS SUMMARY | 2018-09-01 22:58 | XMS REPORT ---
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 Name Role Phone EARLINE AGUILAR Unavailable PROBLEMS Type Condition ICD9-CM Code [id number] Code Onset Dates Condition Status SNOMED Code Problem Intractable episodic cluster headache G44.011 Active [id number] ALLERGIES No Known Allergies ENCOUNTERS Encounter Location Date Diagnosis [place] [id number] [place] [address] [id number] May, Intractable episodic cluster headache G44.011 [place] [id number] [place] [address] [id number] May, Encounter for Depo-Provera contraception Z30.42 [place] [id number] [place] [address] [id number] Feb, Encounter for Depo-Provera contraception Z30.42 [place] [id number] [place] [address] [id number] Jan, Cough R05 and Flu-like symptoms R68.89 [place] [id number] [place] [address] [id number] Jan, Acute non-recurrent frontal sinusitis J01.[address] [id number] Dec, Cough R05 and Sore throat J02.9 [facility] [address] [id number][place] [id number] Dec, [facility] [id number], [place] [id number] Dec, Dental examination Z01.20 [id number] [place] [address] [id number] Dec, [address] [place] [id number] [id number] 26 Nov, 2016 Well woman exam with routine gynecological exam Z01.419 ; High risk sexual behavior Z72.51 ; control counseling Z30.09 ; Encounter for initial prescription of injectable contraceptive Z30.013 and Encounter for Depo-Provera contraception Z30.42 [facility] [id number], [place] [id number] 20 Dec, 2015 Encounter for immunization Z23 [facility] [address] [place] [address] [id number] Jun, Dental examination Z01.20 [facility] [address] [phone] May, Dental examination Z01.20 [facility] [id number] [place] [phone] May, Dental examination Z01.20 [facility] [id number] [place] [phone] Apr, Dental examination Z01.20 [facility] [id number], [place] [id number] Jan, Viral syndrome B34.9 [facility] [address] [place] [address] [id number] Dec, Dental examination Z01.20 and Dental caries K02.9 IMMUNIZATIONS No Known Immunizations SOCIAL HISTORY Never Assessed REASON FOR VISIT Pt c/o cough/chest congestion/fever/sore throat started this weekend Louis Camejo PLAN OF CARE Activity Details Follow Up if s/s not improving with PCP or in Clinic Reason: VITAL SIGNS Height 66 in 2017-01-12 Weight 188 lbs 2017-01-12 Temperature 98.2 degrees Fahrenheit 2017-01-12 Heart Rate 100 bpm 2017-01-12 Respiratory Rate 18 2017-01-12 BMI 30.34 kg/m2 2017-01-12 Blood pressure systolic 122 mmHg 2017-01-12 Blood pressure diastolic 70 mmHg 2017-01-12 MEDICATIONS Medication Instructions Dosage Frequency Start Date End Date Duration Status Tessalon 100 mg Orally Three times a day 1 capsule 8h Dec, Jan, 10 days Active RESULTS Name Result Date Reference Range STREP A (IN HOUSE) 2017-03-17 STREP A negative Control + Lot # Exp date PROCEDURES Procedure Date Ordered Result Body Site STREP A ASSAY W/OPTIC Jan 12, 2017 INSTRUCTIONS MEDICATIONS ADMINISTERED No Known Medications MEDICAL (GENERAL) HISTORY Type Description Date Medical History cluster headaches Surgical History tonsilectomy 2002 Surgical History bone removed from left foot 2008
--- OUTSIDE RECORDS SUMMARY | 2018-09-01 22:58 | XMS REPORT ---
Author Author EARLINE AGUILAR Organization [facility] Address [address] [place] [address] Care Team Providers Care Missile Inspector Name Role Phone EARLINE AGUILAR Unavailable PROBLEMS Type Condition ICD9-CM Code HRZ21-CR Code Onset Dates Condition Status SNOMED Code Problem Intractable episodic cluster headache G44.011 Active [id number] ALLERGIES No Information ENCOUNTERS Encounter Location Date Diagnosis [id number] [place] [address] [id number] May, Intractable episodic cluster headache G44.011 [id number] [place] [address] [id number] May, Encounter for Depo-Provera contraception Z30.42 [address] [id number] [place] [address] [id number] Feb, Encounter for Depo-Provera contraception Z30.42 [address] [id number] [place] [address] [id number] Jan, Cough R05 and Flu-like symptoms R68.[address] [id number] Jan, Acute non-recurrent frontal sinusitis J01.[address] [id number] Dec, Cough R05 and Sore throat J02.[address] [facility] [address] [id number] [id number] Dec, [facility] [id number], [place] [id number] Dec, Dental examination Z01.20 [address] [place] [address] [id number] Dec, [address] [id number] [id number] 26 Nov, 2017 Well woman exam with routine gynecological exam Z01.419 ; High risk sexual behavior Z72.51 ; control counseling Z30.09 ; Encounter for initial prescription of injectable contraceptive Z30.013 and Encounter for Depo-Provera contraception Z30.42 [facility] [id number] [id number] 20 Dec, 2015 Encounter for immunization Z23 [facility] [address]100[place], [place] [id number] Jun, Dental examination Z01.20 [facility] [id number] [place] [phone] May, Dental examination Z01.20 [facility] [id number] [place] [phone] May, Dental examination Z01.20 [facility] [id number] [place] [phone] Apr, Dental examination Z01.20 [facility] [address]00565100[place] [id number] Jan, Viral syndrome B34.9 [facility] [address]100[place], [place] [phone] Dec, Dental examination Z01.20 and Dental caries K02.9 IMMUNIZATIONS Vaccine Route Administration Date Status DEPO PROVERA (150 MG/ML) IM Intramuscular Mar 02, 2017 Administered SOCIAL HISTORY Never Assessed REASON FOR VISIT Depo Provera injection [facility] PLAN OF CARE VITAL SIGNS MEDICATIONS No Known Medications RESULTS Name Result Date Reference Range TEST, URINE (IN HOUSE) 2017-03-02 RESULTS negative Lot # [id number] Control + Exp date 07/12/2018 PROCEDURES Procedure Date Ordered Result Body Site URINE TEST Mar 02, 2017 DEPO PROVERA (150 MG/ML) Mar 02, 2017 THER/PROPH/DIAG INJ, SC/IM Mar 02, 2017 INSTRUCTIONS MEDICATIONS ADMINISTERED No Known Medications MEDICAL (GENERAL) HISTORY Type Description Date Medical History cluster headaches Surgical History tonsilectomy 2002 Surgical History bone removed from left foot 2008
[2018-09-01] MEDS ORDERED: ZIPR40CA26 (23:06)
[2018-09-01] MEDS ORDERED: GABA-486 (23:06)
--- NOTE | 2018-09-01 23:34 | ED Respiratory ---
General Chief Complaint: General Problems/Pain Stated Complaint: SOA, CHEST PAINS, COUGHING, NAUSEA Nursing Triage Note: COUGH X1 WEEK. BILATERAL ARM NUMBNESS, CONFUSION, DISORIENTATION TODAY STARTED ON GABAPENTIN/GEODON 1 WEEK AGO. Source: patient Exam Limitations: no limitations History of Present Illness Date Seen by Provider: Sep 01, 2018 Time Seen by Provider: 23:23 Initial Comments Patient presents to ER by private conveyance with her significant other and chief complaint for the past week she's been having a nonproductive, irritating cough worse at night. She's had no runny nose fevers chills nausea vomiting. She has no history of asthma although her daughter does have asthma. She says the timing of her cough coincided with starting the gabapentin and Geodon by her psychiatrist. She started taking his medications for bipolar disorder and her significant other feels that the medications have helped her however she is usually considering that the cough is being caused by her medications. She's also tonight having some pain in her chest worse on deep inspiration or direct palpation. She has a history of PVCs but no other personal cardiac or familial cardiac history. She has not taken her Geodon tonight however she still having significant coughing. She has not been seen by a provider. She also endorses some tingling in all 4 of her extremities from time to time. She said she took some dextromethorphan tonight for her cough and it did not help much with her cough and made her feel very out of it for a couple hours. Allergies and Home Medications Allergies Coded Allergies: No Known Drug Allergies (Unverified , 04/07/10) Home Medications Azithromycin 250 Mg Tablet, 250 MG PO UD TAKE 2 TABLETS ON DAY ONE THEN TAKE 1 TABLET DAILY FOR FOUR MORE DAYS Prescribed by: SADI BANERJEE on 09/02/18 0021 Patient Home Medication List Home Medication List Reviewed: Yes Review of Systems Review of Systems Constitutional: No chills, No diaphoresis EENTM: No ear discharge, No ear pain Respiratory: see HPI, cough; No phlegm, No short of breath, No wheezing Cardiovascular: see HPI, chest pain; No edema, No palpitations Gastrointestinal: No abdominal pain, No constipation, No diarrhea, No nausea, No vomiting Genitourinary: No discharge, No dysuria : No (Depo-Medrol in july 2018) Musculoskeletal: No back pain, No joint pain Past Wmyreyz-Ibdfmh-Fcweeb Hx Patient Social History Alcohol Use: Denies Use Recreational Drug Use: No Smoking Status: Never a Smoker 2nd Hand Smoke Exposure: No Recent Foreign Travel: No Contact w/Someone Who Travel: No Recent Infectious Disease Expo: No Recent Hopitalizations: No Immunizations Up To Date Tetanus Booster (TDap): Unknown Seasonal Allergies Seasonal Allergies: No Past Medical History Surgeries: Yes (BONE SPUR) Tonsillectomy Respiratory: No Cardiac: No Neurological: No : No (DEPOT SHOT) Genitourinary: No Gastrointestinal: No Musculoskeletal: No Endocrine: No HEENT: No Cancer: No Psychosocial: Yes Bipolar Integumentary: No Blood Disorders: No Physical Exam Vital Signs - First Documented 09/01/18 22:57 Temp 97.8 Pulse 94 Resp 18 B/P (MAP) 108/83 (91) Pulse Ox 98 O2 Delivery Room Air Capillary Refill : Less Than 3 Seconds Height: 5'6.00" Weight: 200lbs. oz. 90.186182ge; BMI Method:Stated General Appearance: WD/WN, no apparent distress Eyes: Bilateral Eye Normal Inspection, Bilateral Eye PERRL, Bilateral Eye EOMI HEENT: PERRL/EOMI, normal ENT inspection, TMs normal, pharynx normal Neck: non-tender, full range of motion, normal inspection Respiratory: chest non-tender, lungs clear, no respiratory distress, no accessory muscle use, decreased breath sounds Cardiovascular: normal peripheral pulses, regular rate, rhythm Neurologic/Psychiatric: alert, normal mood/affect, oriented x 3 Skin: normal color, warm/dry Progress/Results/Core Measures Suspected Sepsis Recent Fever Within 48 Hours: No Infection Criteria Present: None New/Unexplained Altered Menta: No Sepsis Screen: No Definite Risk SIRS Temperature:97.8 Pulse: 94 Respiratory Rate: 18 Laboratory Tests 09/01/18 23:48: White Blood Count 8.7 Blood Pressure 108 /83 Mean: 91 Laboratory Tests 09/01/18 23:48: Creatinine 0.92, Platelet Count 260, Total Bilirubin 0.3 Results/Orders Lab Results Laboratory Tests Test 09/01/18 23:48 Range/Units White Blood Count 8.7 4.3-11.0 10^3/uL Red Blood Count 4.56 4.35-5.85 10^6/uL Hemoglobin 13.4 11.5-16.0 G/DL Hematocrit 39 35-52 % Mean Corpuscular Volume 85 80-99 FL Mean Corpuscular Hemoglobin 29 25-34 PG Mean Corpuscular Hemoglobin Concent 34 32-36 G/DL Red Cell Distribution Width 13.0 10.0-14.5 % Platelet Count 260 130-400 10^3/uL Mean Platelet Volume 10.3 7.4-10.4 FL Neutrophils (%) (Auto) 48 42-75 % Lymphocytes (%) (Auto) 40 12-44 % Monocytes (%) (Auto) 11 0-12 % Eosinophils (%) (Auto) 1 0-10 % Basophils (%) (Auto) 0 0-10 % Neutrophils # (Auto) 4.1 1.8-7.8 X 10^3 Lymphocytes # (Auto) 3.5 1.0-4.0 X 10^3 Monocytes # (Auto) 0.9 0.0-1.0 X 10^3 Eosinophils # (Auto) 0.1 0.0-0.3 10^3/uL Basophils # (Auto) 0.0 0.0-0.1 10^3/uL Sodium Level 142 135-145 MMOL/L Potassium Level 3.4 L 3.6-5.0 MMOL/L Chloride Level 109 H 98-107 MMOL/L Carbon Dioxide Level 22 21-32 MMOL/L Anion Gap 11 5-14 MMOL/L Blood Urea Nitrogen 9 7-18 MG/DL Creatinine 0.92 0.60-1.30 MG/DL Estimat Glomerular Filtration Rate > 60 BUN/Creatinine Ratio 10 Glucose Level 105 70-105 MG/DL Calcium Level 9.4 8.5-10.1 MG/DL Corrected Calcium 9.2 8.5-10.1 MG/DL Total Bilirubin 0.3 0.1-1.0 MG/DL Aspartate Amino Transf (AST/SGOT) 27 5-34 U/L Alanine Aminotransferase (ALT/SGPT) 34 0-55 U/L Alkaline Phosphatase 70 40-136 U/L Troponin I < 0.028 <0.028 NG/ML C-Reactive Protein High Sensitivity 0.26 0.00-0.50 MG/DL Total Protein 7.1 6.4-8.2 GM/DL Albumin 4.2 3.2-4.5 GM/DL My Orders Orders - LAVONNE,SADI J Cbc With Automated Diff (09/01/18 23:32) Comprehensive Metabolic Panel (09/01/18 23:32) Hs C Reactive Protein (09/01/18 23:32) Albuterol/Ipra Inhalation Soln (Duoneb I (09/01/18 23:45) Urine Bedside (09/01/18 23:32) Svn Small Volume Nebulizer (09/01/18 23:32) Troponin I (09/01/18 23:34) Ekg Tracing (09/01/18 23:34) Chest Pa/Lat (2 View) (09/02/18 00:01) Medications Given in ED Current Medications Medications Dose Ordered Sig/Bob Route Start Time Stop Time Status Last Admin Dose Admin Albuterol/ Ipratropium 3 ml ONCE ONCE INH 09/01/18 23:45 09/01/18 23:46 DC 09/01/18 23:48 3 ML Vital Signs/I&O 09/01/18 09/01/18 22:57 23:52 Temp 97.8 Pulse 94 Resp 18 B/P (MAP) 108/83 (91) Pulse Ox 98 98 O2 Delivery Room Air Room Air Capillary Refill : Less Than 3 Seconds Blood Pressure Mean: 91 Progress Note : Time: 23:39 Progress Note DuoNeb, basic labs, negative urine bedside and 2 view chest x-ray. ECG Initial ECG Impression Date: Sep 01, 2018 Initial ECG Impression Time: 23:40 Initial ECG Rate: 80 Initial ECG Rhythm: Normal Sinus Initial ECG Intervals: Normal Initial ECG Impression: Normal Initial ECG Comparisson: No Previous ECG Available Comment No ST elevation or depression. Diagnostic Imaging Diagonstic Imaging: Xray Plain Films/CT/US/NM/MRI: chest (2v) Comments No acute cardiopulmonary process on a 2 view chest x-ray. Reviewed: Reviewed by Me Departure Impression Primary Impression: Bronchitis Disposition: 01 HOME, SELF-CARE Condition: Stable Departure-Patient Inst. Decision time for Depature: 00:30 Referrals: [facility] (PCP/Family) Primary Care Physician Patient Instructions: Acute Bronchitis, Adult (DC) Add. Discharge Instructions: Use vapor rubs such as Vicks or Mentholatum. Drink lots of fluids. Take 2 tablets of azithromycin tomorrow followed by one tablet every day until they are gone. Use the Tessalon Perles 1-2 capsules every 6 hours as needed for cough. Make follow-up appointment in 1-2 weeks with your primary care doctor discussed with your symptoms are improved. All discharge instructions reviewed with patient and/or family. Voiced understanding. Scripts Azithromycin (Azithromycin) 250 Mg Tablet 250 MG PO UD, #6 TAB 0 Refills TAKE 2 TABLETS ON DAY ONE THEN TAKE 1 TABLET DAILY FOR FOUR MORE DAYS Prov: SADI BANERJEE 09/02/18 SADI BANERJEE Sep 01, 2018 23:34
[2018-09-01] MEDS ORDERED: RT-ALBUTEROL/IPRATROPIUM 3 ML (DUONEB) VIAL INH ONE (23:45)
[2018-09-01 23:56] LABS: BASOPHILS % (AUTO) 0 % (0-10); EOSINOPHILS # (AUTO) 0.1 10^3/uL (0.0-0.3); EOSINOPHILS % (AUTO) 1 % (0-10); HEMATOCRIT 39 % (35-52); HEMOGLOBIN 13.4 G/DL (11.5-16.0); LYMPHOCYTES # (AUTO) 3.5 X 10^3 (1.0-4.0); LYMPHOCYTES % (AUTO) 40 % (12-44); MEAN CORPUSCULAR HEMOGLOBIN 29 PG (25-34); MEAN CORPUSCULAR HGB CONC 34 G/DL (32-36); MEAN CORPUSCULAR VOLUME 85 FL (80-99); MEAN PLATELET VOLUME 10.3 FL (7.4-10.4); MONOCYTES # (AUTO) 0.9 X 10^3 (0.0-1.0); MONOCYTES % (AUTO) 11 % (0-12); NEUTROPHILS # (AUTO) 4.1 X 10^3 (1.8-7.8); NEUTROPHILS % (AUTO) 48 % (42-75); PLATELET COUNT 260 10^3/uL (130-400); WHITE BLOOD COUNT 8.7 10^3/uL (4.3-11.0)
[2018-09-02 00:18] LABS: ALANINE AMINOTRANSFERASE 34 U/L (0-55); ALBUMIN 4.2 GM/DL (3.2-4.5); ALKALINE PHOSPHATASE 70 U/L (40-136); BILIRUBIN,TOTAL 0.3 MG/DL (0.1-1.0); BUN/CREATININE RATIO 10; CALCIUM 9.4 MG/DL (8.5-10.1); CARBON DIOXIDE 22 MMOL/L (21-32); CHLORIDE 109 MMOL/L (98-107); CREATININE SERUM 0.92 MG/DL (0.60-1.30); GFR ESTIMATED > 60; GLUCOSE 105 MG/DL (70-105); POTASSIUM 3.4 MMOL/L (3.6-5.0); SODIUM 142 MMOL/L (135-145); TOTAL PROTEIN 7.1 GM/DL (6.4-8.2)
[2018-09-02] MEDS ORDERED: AZIT250T12 PO ×2 (00:21→00:37)
[2018-09-02 00:35] VITALS: BP 109/87
[2018-09-02] MEDS ORDERED: BENZ-13 PO (00:37)
--- NOTE | 2018-09-02 06:39 | Diagnostic Imaging Report ---
INDICATION: Cough and congestion. COMPARISON: None available. TECHNIQUE: 2 radiographs of the chest dated 09/02/2018. FINDINGS: The cardiac silhouette and pulmonary vasculature are within normal limits in size. The lungs are clear. No pleural effusion. No pneumothorax. No acute osseous abnormality. IMPRESSION: Unremarkable examination without acute cardiopulmonary abnormality. Dictated by: Dictated on workstation # [id number]
== END 2018-09-02 00:39 | disposition home or self-care (01) ==
LOC: EDUNIT# 22:51 → ER 22:53
DX: J40 Bronchitis, not specified as acute or chronic (principal); F31.9 Bipolar disorder, unspecified; Z90.89 Acquired absence of other organs
CPT/HCPCS: 36415; 71046; 80053; 84484; 84703; 85025; 86141; 93005; 94640

== ENCOUNTER → 2020-11-19 | Outpatient (REF) ==
[~2020-11-19] MED LIST changes: +AZIT250T12 PO; +BENZ-13 PO; +GABA-486; +ZIPR40CA23
--- NOTE | 2020-11-19 14:08 | Diagnostic Imaging Report ---
EXAM: LUMBAR SPINE - 2-3 VIEWS. INDICATION: Low back pain after injury 6 days ago. COMPARISON: None. FINDINGS: Normal alignment. No fractures identified. Mild degenerative changes in the superior endplates of L3 and L4. Visualized pelvis is intact. IMPRESSION: No acute radiographic findings in the lumbar spine. Mild degenerative changes as above. Dictated by: Dictated on workstation # [id number]
== END ==
LOC: OCC 13:40
PROVIDERS: ATTEND Family Medicine
DX: M47.896 Other spondylosis, lumbar region (principal)
CPT/HCPCS: 72100

== ENCOUNTER → 2020-12-06 | Outpatient (REF) ==
--- NOTE | 2020-12-06 15:58 | Diagnostic Imaging Report ---
EXAMINATION: Lumbar spine MRI without contrast, 12/06/2020. TECHNIQUE: Multiplanar, multisequence MRI of the lumbar spine was performed without contrast. INDICATION: Pain after an acute injury at work. FINDINGS: There is normal height and alignment of the vertebral bodies. Tip of the conus is unremarkable in appearance and location. L1-L2: Unremarkable. L2-L3: Unremarkable. L3-L4: There is bilateral facet and ligamentum flavum hypertrophy. No central stenosis. There is mild bilateral neural foraminal narrowing. L4-L5: There is bilateral facet and ligamentum flavum hypertrophy. There is a mild broad-based bulging disc. No central stenosis. [id number]-cc-ytohhtvo bilateral neural foraminal stenosis is seen. L5-S1: There is intervertebral disc space narrowing, disc desiccation, and a mild right paracentral broad-based bulging disc containing a central annular tear. Bilateral facet and ligamentum flavum hypertrophy is noted. There is moderate central narrowing with narrowing of the lateral recesses, right greater than left. There is moderate bilateral neural foraminal stenosis. The visualized intra-abdominal structures are unremarkable. IMPRESSION: 1. Multilevel degenerative findings as described above. Dictated by: Dictated on workstation # [id number]
== END ==
LOC: OCC 09:37
PROVIDERS: ATTEND Family Medicine
DX: M47.897 Other spondylosis, lumbosacral region (principal)
CPT/HCPCS: 72148